=== PATIENT | male | born 1965 | race Caucasian/White ===

== ENCOUNTER 2023-10-12 10:37 | Outpatient (CLI) | payer MEDICARE, MEDICAID | END 2023-10-12 23:59 | disposition home or self-care (01) | LOC: RAD 10:37 | PROVIDERS: ATTEND Nurse Practitioner Family | DX: R22.32 Localized swelling, mass and lump, left upper limb (principal) | CPT/HCPCS: 76881 ==

== ENCOUNTER 2023-12-09 17:59 | Emergency (ER) | payer MEDICARE, MEDICAID ==
[~2023-12-09] VITALS: Ht 177.8 cm; Wt 93.2 kg
[2023-12-09 18:26] LABS: BASOPHILS % (AUTO) 0.2 % (0-1); EOSINOPHILS # (AUTO) 0.2 X10'3 (0-0.9); HEMATOCRIT 39.5 % (42.0-52.0); HEMOGLOBIN 13.1 g/dl (14.0-17.9); LYMPHOCYTES # (AUTO) 2.4 X10'3 (1.1-4.8); LYMPHOCYTES % (AUTO) 27.6 % (21-51); MEAN CORPUSCULAR HEMOGLOBIN 28.8 PG (27.0-31.0); MEAN CORPUSCULAR HGB CONC 33.1 g/dL (33.0-36.5); MEAN PLATELET VOLUME 6.6 FL (7.4-10.4); MONOCYTES # (AUTO) 1.1 X10'3 (0-0.9); NEUTROPHILS # (AUTO) 5.1 X10'3 (1.8-7.7); NEUTROPHILS % (AUTO) 58.2 % (42-75); PLATELET COUNT 352 X10'3 (140-440); RED BLOOD COUNT 4.54 X10'6 (4.70-6.10); RED CELL DISTRIBUTION WIDTH 14.5 % (11.5-14.5); WHITE BLOOD COUNT 8.8 X10'3 (4.5-11.0)
[2023-12-09] MEDS: LIDOcaine 1% W/epiNEPHrine 1:100,000 20ml vial SQ ONE (18:38)
[2023-12-09] MEDS: ceFAZolin/D5W- 1GM premix 50 ML IV STA (18:42)
[2023-12-09 18:47] LABS: ETHANOL 38 MG/DL (<10)
[2023-12-09] MEDS ORDERED: tetanus & diphtheria toxoid (Td) vaccine 0.5ml IMVAC ONE (18:50)
[2023-12-09] MEDS: TETanus/Pertussis (Acell)/Diphther VAC/PF (Tdap-Adult) 0.5ml syringe IMVAC ONE (18:58)
[2023-12-09 19:06] LABS: APTT 23 SECONDS (22-32); INR 1.1 INR; PROTHROMBIN TIME 11.4 SECONDS (9.0-12.0)
[2023-12-09] MEDS: LIDOcaine 1% W/epiNEPHrine 1:100,000 20ml vial SQ STA (20:17)
[2023-12-09] MEDS ORDERED: LIDOcaine 0.5% W/epiNEPHrine 1:200,000 50ml vial IJ STA (20:29)
[2023-12-09] MEDS: LIDOcaine 1% W/epiNEPHrine 1:100,000 20ml vial IJ STA (20:59)
[2023-12-09] MEDS: HYDROmorphone 1 mg/ml syringe IV ONE (21:00)
[2023-12-09] MEDS ORDERED: CEPH500C3 PO (23:42)
[2023-12-10 00:47] VITALS: BP 134/97; PULSE 74; RESP 16; TEMP 98.6; O2SAT 100
== END 2023-12-10 01:03 | disposition home or self-care (01) ==
LOC: ER 17:59
DX: S61.411A Laceration without foreign body of right hand, initial encounter (principal); S51.812A Laceration without foreign body of left forearm, initial encounter; R79.1 Abnormal coagulation profile; Z79.2 Long term (current) use of antibiotics; W19.XXXA Unspecified fall, initial encounter; Y93.89 Activity, other specified; Y92.89 Other specified places as the place of occurrence of the external cause; Y99.8 Other external cause status
CPT/HCPCS: 12005; 36415; 71045; 73090; 73130; 84484; 85025; 85610; 85730; 86870; 86880; 86885; 86900; 86901; 90715; 96365; 96366; 96375; 99285; A6222; A6223; A6402; A6446; A6449; G0008; G0480; J0690; J1170; J3490; Z7610; 80320; 86902; 86905; 90471

== ENCOUNTER 2024-11-20 17:22 | Emergency (ER) | payer MEDICARE, MEDICAID ==
[~2024-11-20] VITALS: Ht 177.8 cm; Wt 92.1 kg
--- NOTE | 2024-11-20 18:53 | RADIOLOGY REPORT ---
CHEST RADIOGRAPH Indication: FORIEGN BODY Technique: Single frontal view of the chest was obtained Comparison: DI CHEST,SINGLE VIEW on DOS: 12/09/23 FINDINGS: The cardiac silhouette is enlarged. The lungs demonstrate perihilar airspace opacities. The pulmonary vasculature is prominent. There is no pleural effusion. There is no pneumothorax. Internal fixation of the right clavicle and right ribs. Multiple loops of air distended bowel within the visualized abdomen IMPRESSION: Cardiomegaly with pulmonary vascular congestion and bilateral perihilar airspace opacities. Multiple loops of gaseous distended bowel within the visualized portion of the upper abdomen.
--- NOTE | 2024-11-20 19:46 | Physician Documentation ---
History of Present Illness ~ Chief Complaint: Sore Throat Stated Complaint: SOMETHING IN THROAT Time Seen by MD: 19:32 HPI Patient presents to the emergency room with feeling as if a piece of roast beef stuck in his throat. He states this happened several times before. He has had esophageal dilation performed a few years ago. He reports compliance with the stomach medications. Medication Reconciliation Allergies: Coded Allergies: No Known Allergies (Unverified , 12/09/23) Review of Systems ROS All review of systems negative except as per HPI Physical Exam Vital Signs: Temperature: 97.8, Source: Temporal, Heart Rate: 78, Respiratory Rate: 18, BP: 128/80, Pulse Oximetry: 99, Weight: 92.100 Oxygen Flow Rate: 2.0 Physical Exam General: Patient is awake, alert, oriented x4 in no acute distress Head: Normocephalic and atraumatic. Eyes: Conjunctival normal. EOMI. PERRL. ENT: Mucous membranes moist. Neck: Supple, trachea is midline. Chest: Clear to auscultation bilaterally without rales, rhonchi, or wheezes. There is no accessory muscle use or retractions. Cardiac: RRR without murmurs, gallops, or rubs. Progress Results/Orders Results/Orders Vital Signs 11/20/24 11/20/24 11/20/24 17:24 18:33 19:08 Temp 97.8 Pulse 110 78 Resp 18 16 18 B/P (MAP) 173/97 128/80 (96) Pulse Ox 95 99 O2 Flow Rate 2.0 Medical Decision Making Findings Patient presented to the emergency room with feeling of esophageal foreign body. Differentials include but are not limited to esophageal foreign body, ACS, stre p throat, retropharyngeal abscess. During patient's stay in the emergency room he attempted to drank some soda and ended up vomiting and clearing his foreign body bolus himself. He states he feels well enough to go in his tolerating p.o.. The need to follow up up with his doctor for likely repeat esophageal dilation discussed. ER precautions discussed. Chest x-ray is reassuring. Departure Disposition: HOME / SELF CARE / HOMELESS Impression: Primary Impression: Esophageal foreign body Condition: Improved Discharge Instructions: Esophageal Stricture Additional Instructions: Follow up with your doctor as you will likely require esophageal dilation again Referrals: NO PRIMARY CARE PROVIDER (PCP) Signature Scribe Signature: No scribe Attestation: The note accurately reflects work and decisions made by me.Liam Murray MD 11/20/24 19:46 LIAM MURRAY MD Nov 20, 2024 19:46
[2024-11-20 19:51] VITALS: BP 148/92; PULSE 80; RESP 18; TEMP 98.1; O2SAT 97
== END 2024-11-20 19:53 | disposition home or self-care (01) ==
LOC: ER 17:23
DX: T18.108A Unspecified foreign body in esophagus causing other injury, initial encounter (principal); W44.9XXA Unspecified foreign body entering into or through a natural orifice, initial encounter; Y93.89 Activity, other specified; Y92.89 Other specified places as the place of occurrence of the external cause; Y99.8 Other external cause status
CPT/HCPCS: 71045; 99283; A4615